=== PATIENT | male | born 2000 | race Asian ===

== ENCOUNTER 2022-08-15 13:06 | Emergency (ER) | payer OTHER ==
[~2022-08-15] VITALS: Ht 177.8 cm; Wt 75.0 kg
[2022-08-15] MEDS ORDERED: METH-624 PO (13:17)
[2022-08-15] MEDS ORDERED: OXYMETAZOLINE HCL 0.05% 15 ML NASAL SPRAY NASAL ONE (14:30)
[2022-08-15 15:00] VITALS: BP 120/76
== END 2022-08-15 15:34 | disposition home or self-care (01) ==
LOC: EMS 13:06
DX: R40.4 Transient alteration of awareness (principal)
CPT/HCPCS: 99282; Z7502; Z7610

== ENCOUNTER 2023-03-10 15:31 | Emergency (ER) | payer OTHER ==
[~2023-03-10] VITALS: Ht 177.8 cm; Wt 63.6 kg
[~2023-03-10 15:31] MED LIST: METH-530 PO
[2023-03-10 15:43] VITALS: BP 129/72; PULSE 100; RESP 18; TEMP 98
[2023-03-10] MEDS ORDERED: METH-521 PO ×2 (15:44→17:30)
[2023-03-10] MEDS ORDERED: METH20CP PO ×2 (17:19→17:30)
== END 2023-03-10 17:42 | disposition home or self-care (01) ==
LOC: EMS 16:40
DX: F90.9 Attention-deficit hyperactivity disorder, unspecified type (principal); Z76.0 Encounter for issue of repeat prescription
CPT/HCPCS: 99281; Z7502